=== PATIENT | female | born 1955 | race Caucasian/White ===

== ENCOUNTER 2022-11-29 07:55 | Day surgery (SDC) | payer MEDICARE, BC ==
[2022-11-29] VITALS (7 sets, daily range): BP systolic 99–137; BP diastolic 52–67
[~2022-11-29] VITALS: Ht 160 cm; Wt 93.4 kg
[2022-11-29] MEDS ORDERED: VANCOMYCIN 1,500MG in NS 300ml IVPB IV ONE (08:15)
[2022-11-29] MEDS ORDERED: cefazolin 2gm/D5W 100mL 100 ML IV ONE (08:15)
[2022-11-29] MEDS ORDERED: LIDOCAINE 2%/EPI 1:100,000 inj. Multi-dose 20 ML VIAL ONE (08:59)
[2022-11-29] MEDS ORDERED: fentaNYL/PF 50MCG/1 ML 2ML syringe ONE (08:59)
[2022-11-29] MEDS ORDERED: vancomycin 1,000mg inj ONE (09:00)
[2022-11-29] MEDS ORDERED: midazolam 1 mg/ML 2ml injection ONE ×3 (09:00→11:03)
[2022-11-29] MEDS ORDERED: ALPR0.5T9 PO (09:04)
[2022-11-29] MEDS ORDERED: FURO40TA4 PO (09:04)
[2022-11-29] MEDS ORDERED: ATEN100T2 PO (09:04)
[2022-11-29] MEDS ORDERED: LISI5TAB22 PO (09:04)
[2022-11-29] MEDS ORDERED: EVOL140P3 SQ (09:04)
[2022-11-29] MEDS ORDERED: POTA-82 PO (09:04)
[2022-11-29] MEDS ORDERED: CHOL100017 PO (09:06)
[2022-11-29] MEDS ORDERED: ASPI-611 PO (09:06)
[2022-11-29 09:23] LABS: BASOPHILS # (AUTO) 0.1 X10'3 (0-0.2); BASOPHILS % (AUTO) 0.9 % (0-1); EOSINOPHILS # (AUTO) 0.2 X10'3 (0-0.9); EOSINOPHILS % (AUTO) 3.8 % (0-6); HEMATOCRIT 38.3 % (35.0-45.0); HEMOGLOBIN 13.3 g/dl (12.0-16.0); LYMPHOCYTES # (AUTO) 2.1 X10'3 (1.1-4.8); MEAN CORPUSCULAR HEMOGLOBIN 32.3 PG (27.0-31.0); MEAN CORPUSCULAR HGB CONC 34.7 g/dL (33.0-36.5); MEAN CORPUSCULAR VOLUME 93.1 FL (78-98); MEAN PLATELET VOLUME 7.5 FL (7.4-10.4); MONOCYTES # (AUTO) 0.6 X10'3 (0-0.9); MONOCYTES % (AUTO) 9.4 % (2-12); NEUTROPHILS # (AUTO) 3.5 X10'3 (1.8-7.7); NEUTROPHILS % (AUTO) 53.9 % (42-75); PLATELET COUNT 170 X10'3 (140-440); RED BLOOD COUNT 4.12 X10'6 (4.20-5.60); RED CELL DISTRIBUTION WIDTH 14.5 % (11.5-14.5); WHITE BLOOD COUNT 6.4 X10'3 (4.5-11.0)
[2022-11-29 10:23] LABS: ALBUMIN 3.9 G/DL (3.4-5.0); ANION GAP 9 (8-16); BLOOD UREA NITROGEN 23 MG/DL (7-18); BUN/CREATININE RATIO 17.2 (6.6-38.0); CALCIUM 9.3 MG/DL (8.5-10.1); CHLORIDE 107 MMOL/L (99-107); CREATININE 1.34 MG/DL (0.40-0.90); GLUCOSE 93 MG/DL (70-104); MAGNESIUM 2.1 MG/DL (1.5-2.4); POTASSIUM 4.1 MMOL/L (3.5-5.1); SODIUM 143 MMOL/L (135-145); TOTAL CARBON DIOXIDE 26.8 MMOL/L (24-32); eGFR 39 ML/MIN
== END 2022-11-29 13:30 | disposition home or self-care (01) ==
LOC: SSTAY O 07:55
PROVIDERS: ATTEND Internal Medicine Cardiovascular Disease
DX: Z45.010 Encounter for checking and testing of cardiac pacemaker pulse generator [battery] (principal); I44.2 Atrioventricular block, complete; I25.118 Atherosclerotic heart disease of native coronary artery with other forms of angina pectoris; I48.0 Paroxysmal atrial fibrillation; I45.10 Unspecified right bundle-branch block; I10 Essential (primary) hypertension; F41.9 Anxiety disorder, unspecified; G47.30 Sleep apnea, unspecified; G60.9 Hereditary and idiopathic neuropathy, unspecified; Z90.49 Acquired absence of other specified parts of digestive tract; Z79.899 Other long term (current) drug therapy; Z79.82 Long term (current) use of aspirin; Z98.890 Other specified postprocedural states; Z95.5 Presence of coronary angioplasty implant and graft; Z88.8 Allergy status to other drugs, medicaments and biological substances
CPT/HCPCS: 33228; 36415; 80048; 83735; 85025; 85610; 93005; 99152; 99153; C1785; J2250; J3010; J3370; J7030; J7040